=== PATIENT | male | born 1930 | race Caucasian/White ===

== ENCOUNTER 2020-06-20 22:52 | Inpatient (IN) | payer MEDICARE, OTHER ==
[~2020-06-20] VITALS: Ht 170.2 cm; Wt 77.6 kg
[2020-06-20] MEDS ORDERED: HALOPERIDOL LACTATE 5 MG/1 ML VIAL IM ONE (23:00)
[2020-06-20] MEDS ORDERED: HALOPERIDOL LACTATE 5 MG/1 ML VIAL ONE (23:06)
[2020-06-20] MEDS ORDERED: LORAZEPAM 2 MG/1 ML VIAL IV ONE (23:15)
[2020-06-20] MEDS ORDERED: LORAZEPAM 2 MG/1 ML VIAL ONE (23:20)
[2020-06-20 23:43] LABS: BASOPHILS # (AUTO) 0.1 K/uL (0.0-8.0); EOSINOPHILS # (AUTO) 0.2 K/uL (0.0-0.7); EOSINOPHILS % (AUTO) 2.2 % (0.0-7.0); HEMATOCRIT 29.8 % (36.7-47.1); HEMOGLOBIN 9.5 g/dL (12.5-16.3); LYMPHOCYTES # (AUTO) 1.8 K/uL (20.0-40.0); LYMPHOCYTES % (AUTO) 22.5 % (20.5-51.5); MEAN CORPUSCULAR HEMOGLOBIN 29.1 uug (23.8-33.4); MEAN CORPUSCULAR HGB CONC 32 g/dL (32.5-36.3); MEAN CORPUSCULAR VOLUME 91.7 fL (73.0-96.2); MONOCYTES # (AUTO) 1.1 K/uL (2.0-10.0); MONOCYTES % (AUTO) 13.7 % (0.0-11.0); NEUTROPHILS # (AUTO) 4.9 K/uL (1.8-8.9); NEUTROPHILS % (AUTO) 60.6 % (38.5-71.5); PLATELET COUNT (AUTO) 221 K/uL (152-348); RED BLOOD CELL COUNT(AUTO) 3.25 MIL/uL (4.06-5.63); WHITE BLOOD COUNT (AUTO) 8.1 K/uL (3.6-10.2)
[2020-06-20] MEDS ORDERED: DILT-32 PO (23:46)
[2020-06-20] MEDS ORDERED: OLAN2.5T3 PO (23:46)
[2020-06-20] MEDS ORDERED: DOCU100C36 PO (23:46)
[2020-06-20] MEDS ORDERED: ASCO500C18 PO (23:46)
[2020-06-20] MEDS ORDERED: APIX5TAB PO (23:46)
[2020-06-20] MEDS ORDERED: ATEN25TA PO (23:46)
[2020-06-20] MEDS ORDERED: MAGN400O6 PO (23:46)
[2020-06-20] MEDS ORDERED: DIVA500T2 PO (23:46)
[2020-06-20] MEDS ORDERED: OMEP20CA15 PO (23:46)
[2020-06-20] MEDS ORDERED: ACET-2154 PO (23:46)
[2020-06-20] MEDS ORDERED: AMIN30LI27 PO (23:46)
[2020-06-20] MEDS ORDERED: FURO-152 PO (23:46)
[2020-06-20] MEDS ORDERED: LOSA100T31 PO (23:46)
[2020-06-20] MEDS ORDERED: quercetin PO (23:46)
[2020-06-20] MEDS ORDERED: DIVA250T4 PO (23:46)
[2020-06-20] MEDS ORDERED: DONE10TA44 PO (23:46)
[2020-06-20] MEDS ORDERED: MEMA10TA PO (23:46)
[2020-06-20] MEDS ORDERED: GABA-532 PO (23:46)
[2020-06-20] MEDS ORDERED: MULT-213 PO (23:46)
[2020-06-20] MEDS ORDERED: FERR325T28 PO (23:46)
[2020-06-20 23:47] LABS: CARBON DIOXIDE 29 mmol/L (21-32); CHLORIDE 109 mmol/L (98-107); GLUCOSE 106 mg/dL (74-106); UREA NITROGEN, BLOOD 21 mg/dL (7-18)
[2020-06-20 23:48] LABS: ETHANOL < 3 MG/DL (0-0)
[2020-06-20 23:53] LABS: ALANINE AMINOTRANSFERASE 26 U/L (16-63); ALKALINE PHOSPHATASE 70 U/L (50-136); ASPARTATE AMINOTRANSFERASE 16 U/L (15-37); BILIRUBIN,DIRECT 0.1 mg/dL (0.0-0.2); BILIRUBIN,TOTAL 0.3 mg/dL (0.2-1.0); CREATINE KINASE, TOTAL 57 U/L (39-308); TOTAL PROTEIN, SERUM 7.7 g/dL (6.4-8.2)
[2020-06-20 23:55] LABS: ACETAMINOPHEN < 2.0 ug/mL (10-30)
[2020-06-21] LABS: THYROID STIMULATING HORMONE 1.906 mIU/mL (0.358-3.740)
[2020-06-21] MEDS ORDERED: FAMOTIDINE 20 MG TABLET PO ONE (01:00)
[2020-06-21] MEDS ORDERED: FAMOTIDINE 20 MG TABLET ONE (01:04)
[2020-06-21 01:12] LABS: *BILIRUBIN,URIN NEGATIVE (NEGATIVE); *CLARITY,URINE CLEAR (CLEAR); *COLOR,URINE YELLOW (YELLOW); *KETONES,URINE TRACE (NEGATIVE); *UROBILINOGEN,URINE 0.2 E.U./dl (NORMAL); LEUKOCYTE ESTERASE ,URINE NEGATIVE (NEGATIVE); NITRITE, URINE NEGATIVE (NEGATIVE); PH,URINE 6.5 (5.0-8.0); UGLUCOSE NEGATIVE (NEGATIVE)
[2020-06-21 01:13] LABS: *BLOOD, URINE TRACE (NEGATIVE)
[2020-06-21] MEDS ORDERED: APIX5TAB PO (01:16)
[2020-06-21 01:19] LABS: BACTERIA,URINE NONE SEEN /HPF (NONE SEEN); MUCUS,URINE FEW /LPF (0-FEW); SQUAMOUS EPITHELIAL CELL,UR FEW /HPF (NONE SEEN); URINE AMORPHOUS URATE FEW /HPF
[2020-06-21 01:27] LABS: *AMPHETAMINE, URINE NEGATIVE (NEGATIVE); *CANNABINOID, URINE NEGATIVE (NEGATIVE); *COCCAINE, URINE NEGATIVE (NEGATIVE); *OPIATE, URINE NEGATIVE (NEGATIVE); *PHENCYCLIDINE SCREEN,URINE NEGATIVE (NEGATIVE)
--- NOTE | 2020-06-21 01:33 | NUR ---
Patient is medically cleared by Dr. Chandler. Pt. admitted to [facility], under care of Ambrose/Kelley Dx: Psychosis. 5150 Hold/GD Belongs List completed. MRSA swab done.
[2020-06-21] MEDS ORDERED: MAG HYDROX/AL HYDROX/SIMETH 30 ML LIQUID UDC PO PRN (03:15)
[2020-06-21] MEDS ORDERED: MAGNESIUM HYDROXIDE 30 ML LIQUID UDC PO PRN (03:15)
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
[2020-06-21 06:18] VITALS: BP 148/58
--- NOTE | 2020-06-21 06:26 | NUR ---
GPS: Remain uncooperative with adl's. easily gets irritable. both lower leg has dry scaly skin. slept 2.30 hrs through the night.
[2020-06-21 07:30] VITALS: BP 136/67
--- NOTE | 2020-06-21 07:30 | NUR ---
Patient received in his room, yelling and trying to get our of bed. Tried to redirect but he kept yelling for his clothes. Patient got up and was going into other patient's rooms. He refuses all medications. He is yelling sometimes incoherent phrases. Safety precautions are in place. Will continue to monitor.
--- NOTE | 2020-06-21 07:30 | NUR ---
Patient received in his room, yelling and trying to get our of bed. Tried to redirect but he kept yelling for his clothes. Patient got up and was going into other patiient's rooms. He refuses all medications. He is yelling sometimes incoherrent phrases. Safety precautions are in place. Will continue to monitor.
[2020-06-21] MEDS: PANTOPRAZOLE SODIUM 40 MG TABLET.DR PO ONE ×2 (08:03→08:04)
[2020-06-21] MEDS: LORAZEPAM 0.5 MG TABLET PO PRN ×3 (08:04→21:24)
[2020-06-21] MEDS ORDERED: OLANZAPINE 10 MG VIAL IM ONE (08:15)
--- NOTE | 2020-06-21 08:50 | NUR ---
Patient is still yelling and being combative. Called dr Devries for order. TO is for Zyprexa 10 MG IM Now. Will administer and continue to monitor.
[2020-06-21] MEDS: DILTIAZEM HCL CD 120 MG CAP.SR.24H PO SCH (09:00)
[2020-06-21] MEDS ORDERED: PANTOPRAZOLE SODIUM 40 MG TABLET.DR PO ONE (09:00)
[2020-06-21] MEDS: FUROSEMIDE 20 MG TABLET PO SCH (09:00)
[2020-06-21] MEDS: LOSARTAN POTASSIUM 50 MG TABLET PO SCH (09:00)
[2020-06-21] MEDS: DOCUSATE SODIUM 100 MG CAPSULE PO SCH ×2 (09:00→16:30)
[2020-06-21] MEDS ORDERED: GABAPENTIN 100 MG CAPSULE PO SCH (09:00)
[2020-06-21] MEDS: ATENOLOL 25 MG TABLET PO SCH (09:00)
[2020-06-21] MEDS ORDERED: APIXABAN 2.5 MG TABLET PO SCH (09:00)
[2020-06-21] MEDS ORDERED: MEMANTINE HCL 10 MG TABLET PO SCH ×2 (09:00)
--- NOTE | 2020-06-21 10:05 | NUR ---
Patient was noted with blood in his diaper, Made LAND CLEARER aware. orders are to hold Eliquis and continue to monitor the patient for other signs of bleeding.
--- NOTE | 2020-06-21 10:19 | NUR ---
Firearms Report: Obstetric Assistant completed and submitted a DOJ firearms report for 5150 danger to others and grave disability certifications. A copy of report has been placed in patient chart.
--- NOTE | 2020-06-21 10:19 | NUR ---
KATLIN Family Contact: SW spoke with patient's daughter Carolina ([phone]) and collected collateral information. SW discussed treatment and discharge plan with Carolina.
--- NOTE | 2020-06-21 10:59 | NUR ---
WOUND CARE CONSULT: PT PRESENTS WITH LOWER LEG REDNESS, EDEMA AND DRY SCABS, PRESENT ON ADMISSION. UNABLE TO DO FULL SKIN ASSESSMENT DUE TO PT AGITATED. RECOMMENDATIONS MADE FOR SKIN PROTECTION. DISCUSSED WITH NURSING STAFF. DR BAKER NOTIFIED OF DPM CONSULT REQUEST. MD IN AGREEMENT WITH PLAN OF CARE.
--- NOTE | 2020-06-21 11:10 | NUR ---
spoke with Cele RN word processing supervisor from [facility] carolina Oakley patient had been received Eliquis daily without any allergic reaction, Fanta DIXON made aware.
--- NOTE | 2020-06-21 11:15 | NUR ---
KATLIN Initial Discharge Plan: Patient currently resides at [facility] [address] [place] [address] ([phone]) and will return back when stable for discharge. KATLIN spoke with Catrachita hathaway from [facility] who confirmed patient is welcome back. Patient's sister, Carolina ([phone]) is involved in the patient treatment and discharge plan. KATLIN will continue to work with patient, family, and MD to ensure a safe and proper discharge plan.
[2020-06-21] MEDS: GABAPENTIN 100 MG CAPSULE PO SCH (11:26)
[2020-06-21] MEDS: DIVALPROEX 250 MG TABLET.DR PO SCH ×2 (13:00→16:30)
[2020-06-21] MEDS: QUETIAPINE FUMARATE 25 MG TABLET PO SCH ×2 (13:00→16:30)
--- NOTE | 2020-06-21 15:08 | NUR ---
Patient 1300 dose for Depakote and Seroquel was not given because pharmacy did not activate until 1500. which is too close to the 1700 dose. Will endorse to the nurse taking over care.
[2020-06-21 16:00] VITALS: BP 127/61
[2020-06-21] MEDS: APIXABAN 5 MG TABLET PO SCH (16:17)
--- NOTE | 2020-06-21 17:36 | NUR ---
continue holding Eliquis due to slight bleeding noted, will continue close monitoring.
[2020-06-21] MEDS: DONEPEZIL 10 MG TABLET PO SCH (20:10)
[2020-06-21] MEDS: MEMANTINE HCL 10 MG TABLET PO SCH (20:10)
[2020-06-21] MEDS: Z GUARD REMEDY PASTE 57 GM TUBE TOP SCH (20:13)
[2020-06-21 20:25] VITALS: BP 147/71
[2020-06-21] MEDS ORDERED: DONEPEZIL 10 MG TABLET PO SCH ×2 (21:00)
--- NOTE | 2020-06-21 21:33 | NUR ---
GPS: PATIENT IS YELLING AND SCREAMING LOUD. ATIVAN 0.5 MG PO GIVEN.
[2020-06-22] MEDS: PANTOPRAZOLE SODIUM 40 MG TABLET.DR PO SCH (06:06)
[2020-06-22 07:08] LABS: BASOPHILS # (AUTO) 0.1 K/uL (0.0-8.0); BASOPHILS % (AUTO) 0.9 % (0.0-2.0); EOSINOPHILS # (AUTO) 0.2 K/uL (0.0-0.7); EOSINOPHILS % (AUTO) 2.1 % (0.0-7.0); HEMATOCRIT 33.9 % (36.7-47.1); HEMOGLOBIN 10.8 g/dL (12.5-16.3); LYMPHOCYTES # (AUTO) 1.8 K/uL (20.0-40.0); LYMPHOCYTES % (AUTO) 25.6 % (20.5-51.5); MEAN CORPUSCULAR HEMOGLOBIN 29.1 uug (23.8-33.4); MEAN CORPUSCULAR HGB CONC 32 g/dL (32.5-36.3); MEAN CORPUSCULAR VOLUME 91.6 fL (73.0-96.2); MONOCYTES # (AUTO) 0.8 K/uL (2.0-10.0); MONOCYTES % (AUTO) 11.2 % (0.0-11.0); NEUTROPHILS # (AUTO) 4.3 K/uL (1.8-8.9); NEUTROPHILS % (AUTO) 60.2 % (38.5-71.5); PLATELET COUNT (AUTO) 233 K/uL (152-348); WHITE BLOOD COUNT (AUTO) 7.1 K/uL (3.6-10.2)
[2020-06-22 07:30] VITALS: BP 150/66
[2020-06-22] MEDS: LORAZEPAM 0.5 MG TABLET PO PRN ×2 (07:40→19:47)
[2020-06-22] MEDS: LOSARTAN POTASSIUM 50 MG TABLET PO SCH (09:06)
[2020-06-22] MEDS: DOCUSATE SODIUM 100 MG CAPSULE PO SCH ×2 (09:06→16:15)
[2020-06-22] MEDS: DIVALPROEX 250 MG TABLET.DR PO SCH ×3 (09:17→16:15)
[2020-06-22] MEDS: GABAPENTIN 100 MG CAPSULE PO SCH (09:17)
[2020-06-22] MEDS: FUROSEMIDE 20 MG TABLET PO SCH (09:17)
[2020-06-22] MEDS: QUETIAPINE FUMARATE 25 MG TABLET PO SCH ×3 (09:17→16:15)
[2020-06-22] MEDS: MEMANTINE HCL 10 MG TABLET PO SCH ×2 (09:17→20:15)
[2020-06-22] MEDS: APIXABAN 5 MG TABLET PO SCH ×2 (09:18→16:16)
--- NOTE | 2020-06-22 09:19 | NUR ---
Individual Therapy: grizzly worker met with patient for brief counseling and assessed for patient's presenting problem aggressive behavior. Patient appeared to be withdrawn and depressed. Patient was blankly staring at this SW and did not verbalize. Unable to conduct therapy at this time.
[2020-06-22] MEDS: VITAMINS A AND D OINT TP SCH (09:20)
[2020-06-22] MEDS: ATENOLOL 25 MG TABLET PO SCH (09:20)
[2020-06-22] MEDS: Z GUARD REMEDY PASTE 57 GM TUBE TOP SCH ×2 (09:20→20:33)
[2020-06-22] MEDS: DILTIAZEM HCL CD 120 MG CAP.SR.24H PO SCH (09:21)
[2020-06-22 16:35] VITALS: BP 129/67
[2020-06-22] MEDS: DONEPEZIL 10 MG TABLET PO SCH (20:15)
--- NOTE | 2020-06-22 20:15 | NUR ---
Received patient sitting up in amanda chair. alert and oriented x1 israeli/Farsi speaking. he was noted yelling. patient is unable to have a meaningful conversation with this designer writer; however, he is compliant with PO medications. Ativan 0.5mg po prn was given for anxiety agitation. PO fluids and snacks were given. Safety precautions are in place. V/S stable. will continue to monitor.
[2020-06-22 20:26] VITALS: BP 121/54
[2020-06-22] MEDS: ZOLPIDEM 5 MG TABLET PO PRN (21:28)
--- NOTE | 2020-06-22 21:30 | NUR ---
while assisting patient to the bathroom and giving care, patient noted agitated and combative, security was called for assistance. patient was able to calm down. he agreed to sit on a kalpesh chair. Ambien 5mg PO prn was given, will continue to monitor.
[2020-06-23] MEDS: LORAZEPAM 0.5 MG TABLET PO PRN ×4 (01:29→21:29)
--- NOTE | 2020-06-23 01:30 | NUR ---
patient noted loud, yelling at time. Patient is difficult to redirect. Pt appears to sundown. Patient speaks Farsi. Ativan 0.5 mg PO PRN was given. he was helped to the bathroom. patient requires multiple redirection and two to three person assistance as he can become combative. After toilet care, patient was able to stay in his bed and he is now sleeping. will continue to monitor.
--- NOTE | 2020-06-23 05:41 | NUR ---
Alarm when off. patient asking to go the bathroom. He was assisted to the bathroom. no aggressive/combative bx noted. patient was able to go back to bed. will continue to monitor.
[2020-06-23] MEDS: PANTOPRAZOLE SODIUM 40 MG TABLET.DR PO SCH (07:00)
[2020-06-23 07:30] VITALS: BP 143/56
[2020-06-23] MEDS: DOCUSATE SODIUM 100 MG CAPSULE PO SCH ×2 (08:00→17:01)
[2020-06-23] MEDS: DIVALPROEX 250 MG TABLET.DR PO SCH (08:01)
[2020-06-23] MEDS: DILTIAZEM HCL CD 120 MG CAP.SR.24H PO SCH (08:01)
[2020-06-23] MEDS: FUROSEMIDE 20 MG TABLET PO SCH (08:01)
[2020-06-23] MEDS: LOSARTAN POTASSIUM 50 MG TABLET PO SCH (08:01)
[2020-06-23] MEDS: GABAPENTIN 100 MG CAPSULE PO SCH (08:01)
[2020-06-23] MEDS: MEMANTINE HCL 10 MG TABLET PO SCH ×2 (08:01→20:01)
[2020-06-23] MEDS: ATENOLOL 25 MG TABLET PO SCH (08:02)
[2020-06-23] MEDS: QUETIAPINE FUMARATE 25 MG TABLET PO SCH ×3 (08:02→17:01)
[2020-06-23] MEDS: APIXABAN 5 MG TABLET PO SCH ×2 (08:03→17:16)
[2020-06-23] MEDS: VITAMINS A AND D OINT TP SCH (08:11)
[2020-06-23] MEDS: Z GUARD REMEDY PASTE 57 GM TUBE TOP SCH ×2 (08:11→20:01)
[2020-06-23] MEDS: DIVALPROEX SPRINKLE 125 MG CAP.SPRINK PO SCH ×2 (12:26→17:01)
[2020-06-23] MEDS ORDERED: OLANZAPINE 10 MG VIAL IM ONE (13:00)
--- NOTE | 2020-06-23 13:00 | NUR ---
PT NOTED HIGHLY AGITATED ON SURINDER-CHAIR. YELLING AND SCREAMING PROFANITIES NON STOP. PT HIGHLY COMBATIVE, KICKING AND HITTING STAFF. CALLED AND RECEIVED ORDER FOR IM MEDICATIONS. ORDERED AND CARRIED OUT.
[2020-06-23] MEDS ORDERED: LORAZEPAM 2 MG/1 ML VIAL IM ONE (15:15)
--- NOTE | 2020-06-23 15:16 | NUR ---
Individual Therapy: general house worker met with patient for brief counseling and assessed for patient's presenting problem aggressive behavior. Patient appeared verbally abusive towards staff. Patient unable to have a proper conversation at this time.
[2020-06-23 16:00] VITALS: BP 134/56
[2020-06-23] MEDS: DONEPEZIL 10 MG TABLET PO SCH (20:01)
[2020-06-23 20:37] VITALS: BP 125/60
[2020-06-23] MEDS: ZOLPIDEM 5 MG TABLET PO PRN (22:31)
[2020-06-24] MEDS: PANTOPRAZOLE SODIUM 40 MG TABLET.DR PO SCH (06:18)
--- NOTE | 2020-06-24 06:45 | NUR ---
Pt slept a total of 6.30 hours last night. Pt was slightly agitated and was not able to fall asleep. PRNs were given. Pt was helped to bed and was finally able to rest and fall asleep. Pt does not appear to be in any distress. Pt is arousable to name and touch. No SOB noted. Bed is locked and in lowest position, bed alarm on. No other issues or concerns at this time, will endorse to day shift.
[2020-06-24 07:30] VITALS: BP 149/77
[2020-06-24 07:43] LABS: CREATININE 0.9 mg/dL (0.6-1.3); POTASSIUM 4.1 mmol/L (3.5-5.1)
[2020-06-24] MEDS: LORAZEPAM 0.5 MG TABLET PO PRN ×3 (08:19→19:56)
[2020-06-24] MEDS: FUROSEMIDE 20 MG TABLET PO SCH (08:44)
[2020-06-24] MEDS: DILTIAZEM HCL CD 120 MG CAP.SR.24H PO SCH (08:44)
[2020-06-24] MEDS: DOCUSATE SODIUM 100 MG CAPSULE PO SCH ×2 (08:44→16:27)
[2020-06-24] MEDS: GABAPENTIN 100 MG CAPSULE PO SCH (08:44)
[2020-06-24] MEDS: QUETIAPINE FUMARATE 25 MG TABLET PO SCH ×5 (08:44→20:17)
[2020-06-24] MEDS: DIVALPROEX SPRINKLE 125 MG CAP.SPRINK PO SCH ×3 (08:44→16:27)
[2020-06-24] MEDS: ATENOLOL 25 MG TABLET PO SCH (08:45)
[2020-06-24] MEDS: LOSARTAN POTASSIUM 50 MG TABLET PO SCH (08:45)
[2020-06-24] MEDS: APIXABAN 5 MG TABLET PO SCH ×2 (08:47→16:28)
[2020-06-24] MEDS: VITAMINS A AND D OINT TP SCH (08:53)
[2020-06-24] MEDS: Z GUARD REMEDY PASTE 57 GM TUBE TOP SCH ×2 (08:53→20:17)
[2020-06-24] MEDS: MEMANTINE HCL 10 MG TABLET PO SCH ×2 (08:53→20:17)
--- NOTE | 2020-06-24 09:35 | NUR ---
GPS: Nursing Notes: Severe Agitation: Patient awake and responding to his name, poor anger management, overly disruptive by constantly shouting and banging on the table or wall, punching staff when assisting him, redirected, but unable to follow directions, poor insight, restless behavior, sexually inappropriate behavior by grabbing his penis and showing off to female staff, resistant with nursing care, Dr. Kayce palmer, continue to monitor for safety, continue with treatment plan.
[2020-06-24] MEDS ORDERED: diphenhydrAMINE 50 MG/1 ML VIAL IM ONE (09:45)
[2020-06-24] MEDS ORDERED: HALOPERIDOL LACTATE 5 MG/1 ML VIAL IM ONE (09:45)
--- NOTE | 2020-06-24 09:46 | NUR ---
GPS: Nursing Notes: Chemical Restraint: Patient continue to be overly disruptive constantly shouting and banging on the table or wall, grabbing female staff or peers when they get near him, redirected, but unable to be redirected, constantly screaming, trying to punch staff with his fist, resistant with nursing care, poor anger management, restless behavior, R=18, Dr. Devries called and ordered: Haldol 5mg IM and Benadryl 25mg IM STAT, IM medications given now, continue to monitor for safety, continue with treatment plan.
--- NOTE | 2020-06-24 10:16 | NUR ---
GPS: Nursing Notes: Reassessment of Chemical Restraint: Patient awake and responding to his name, patient became calm, confused, disorganized, but stopped banging on the at table or wall, IM medications were effective, R=18, continue to monitor for safety, continue with treatment plan.
[2020-06-24 13:02] LABS: BASOPHILS # (AUTO) 0.1 K/uL (0.0-8.0); BASOPHILS % (AUTO) 0.9 % (0.0-2.0); EOSINOPHILS # (AUTO) 0.2 K/uL (0.0-0.7); EOSINOPHILS % (AUTO) 3.6 % (0.0-7.0); HEMATOCRIT 32.8 % (36.7-47.1); HEMOGLOBIN 10.4 g/dL (12.5-16.3); LYMPHOCYTES # (AUTO) 1.7 K/uL (20.0-40.0); LYMPHOCYTES % (AUTO) 24.4 % (20.5-51.5); MEAN CORPUSCULAR HEMOGLOBIN 28.9 uug (23.8-33.4); MEAN CORPUSCULAR HGB CONC 32 g/dL (32.5-36.3); MEAN CORPUSCULAR VOLUME 91.3 fL (73.0-96.2); MONOCYTES # (AUTO) 0.8 K/uL (2.0-10.0); MONOCYTES % (AUTO) 12.2 % (0.0-11.0); NEUTROPHILS % (AUTO) 58.9 % (38.5-71.5); PLATELET COUNT (AUTO) 213 K/uL (152-348); RED BLOOD CELL COUNT(AUTO) 3.59 MIL/uL (4.06-5.63); WHITE BLOOD COUNT (AUTO) 6.9 K/uL (3.6-10.2)
[2020-06-24 16:00] VITALS: BP 117/52
--- NOTE | 2020-06-24 17:47 | NUR ---
GPS: Nursing Notes: Thought Disorder: Patient is awake and responding to his name, impaired judgment, resistant with nursing care, overly disruptive by constantly shouting, episode of grabbing his penis and show it off to female staff, episodes of striking out when assisting him with ADL's, redirected and reoriented during shift, impaired judgment, confused, unable to formulate a viable plan for self care, continue with treatment plan.
[2020-06-24 19:57] VITALS: BP 108/54
[2020-06-24] MEDS: DONEPEZIL 10 MG TABLET PO SCH (20:17)
[2020-06-24] MEDS: ZOLPIDEM 5 MG TABLET PO PRN (20:55)
[2020-06-25] MEDS: PANTOPRAZOLE SODIUM 40 MG TABLET.DR PO SCH (06:16)
[2020-06-25 07:30] VITALS: BP 128/52
[2020-06-25] MEDS: LORAZEPAM 0.5 MG TABLET PO PRN ×3 (07:32→23:24)
[2020-06-25] MEDS: DILTIAZEM HCL CD 120 MG CAP.SR.24H PO SCH (08:12)
[2020-06-25] MEDS: DIVALPROEX SPRINKLE 125 MG CAP.SPRINK PO SCH ×3 (08:12→16:17)
[2020-06-25] MEDS: DOCUSATE SODIUM 100 MG CAPSULE PO SCH ×2 (08:12→16:17)
[2020-06-25] MEDS: QUETIAPINE FUMARATE 25 MG TABLET PO SCH ×4 (08:13→20:34)
[2020-06-25] MEDS: GABAPENTIN 100 MG CAPSULE PO SCH (08:13)
[2020-06-25] MEDS: FUROSEMIDE 20 MG TABLET PO SCH (08:13)
[2020-06-25] MEDS: LOSARTAN POTASSIUM 50 MG TABLET PO SCH (08:13)
[2020-06-25] MEDS: MEMANTINE HCL 10 MG TABLET PO SCH ×2 (08:13→20:34)
[2020-06-25] MEDS: Z GUARD REMEDY PASTE 57 GM TUBE TOP SCH ×2 (08:14→20:34)
[2020-06-25] MEDS: ATENOLOL 25 MG TABLET PO SCH (08:14)
[2020-06-25] MEDS: VITAMINS A AND D OINT TP SCH (08:14)
[2020-06-25] MEDS: APIXABAN 5 MG TABLET PO SCH ×2 (08:15→16:19)
--- NOTE | 2020-06-25 11:25 | NUR ---
GPS: Nursing Notes: Severe Agitation: Patient awake and responding to his name, poor anger management, violent outburst without provocation, overly disruptive by constantly screaming, shouting, constantly banging on the wall and table, shouting "MAMA... PAPA.." while masturbating in front ot nursing station, redirected and setting limits, but unable to be redirected, trying to striking out to staff, restless behavior, Dr. Kayce palmer, continue to monitor for safety, continue with treatment plan.
[2020-06-25] MEDS ORDERED: HALOPERIDOL LACTATE 5 MG/1 ML VIAL IM ONE (11:30)
[2020-06-25] MEDS ORDERED: diphenhydrAMINE 50 MG/1 ML VIAL IM ONE (11:30)
--- NOTE | 2020-06-25 11:33 | NUR ---
GPS: Nursing Notes: Chemical Restraint: Patient continue to be overly disruptive by constantly shouting, screaming, poor anger management, poor impulse control, constantly banging on the table or wall, kicking staff, impaired judgment, confused, unable to be redirected, restless behavior, putting his hand between his legs, Dr. Devries present and ordered: Haldol 5mg IM and Benadryl 25mg IM X1 STAT for severe agitated behavior, R=18, medications given at this time, continue to monitor for safety, continue with treatment plan.
--- NOTE | 2020-06-25 12:03 | NUR ---
GPS: Nursing Notes: Reassessment of Chemical Restraint: Patient is awake and responding to his name, patient became calm, stopped shouting, IM medications were effective, R=18, continue to set limits, continue to monitor for safety, continue with treatment plan.
[2020-06-25] MEDS: ACETAMINOPHEN 325 MG TABLET PO PRN (16:18)
[2020-06-25 20:08] VITALS: BP 134/78
--- NOTE | 2020-06-25 20:30 | NUR ---
RECEIVED PATIENT IN THE HALLWAY, HE IS SITTING IN A SILVIO CHAIR. HE IS NOTED CONFUSED, HYPERVERBAL, RESTLESS. PATIENT IS ARMINAN SPEAKER; THEREFORE, THE BLUE PHONE WAS USED TO COMMUNICATE WITH PATIENT'S AND HIS NEED; HOWEVER, HE WAS UNABLE TO UNDERSTAND, A PHONE CALL WAS PLACED TO PATIENT'S SON. SON STATED THAT HIS FATHER WAS COLD AND NEEDED IT A BLANKET. PATIENT WAS GIVEN A BLANKET AND ALL HIS NEEDS WERE MET. HE IS ABLE TO COMPLY WITH MEDICATION REGIMENT AT THIS TIME. V/S STABLE AT THIS TIME. HE IS REASSURED FOR HIS SAFETY. SAFETY AND FALL PRECAUTION IN PLACE. WILL CONTINUE TO MONITOR.
[2020-06-25] MEDS: DONEPEZIL 10 MG TABLET PO SCH (21:20)
[2020-06-26] MEDS: ZOLPIDEM 5 MG TABLET PO PRN (01:13)
[2020-06-26] MEDS: LORAZEPAM 0.5 MG TABLET PO PRN ×2 (06:43→18:27)
[2020-06-26] MEDS: PANTOPRAZOLE SODIUM 40 MG TABLET.DR PO SCH (06:44)
[2020-06-26 07:30] VITALS: BP 137/59
[2020-06-26] MEDS: ACETAMINOPHEN 325 MG TABLET PO PRN ×2 (08:28→18:27)
[2020-06-26] MEDS: DOCUSATE SODIUM 100 MG CAPSULE PO SCH ×2 (08:29→16:18)
[2020-06-26] MEDS: LOSARTAN POTASSIUM 50 MG TABLET PO SCH (08:29)
[2020-06-26] MEDS: FUROSEMIDE 20 MG TABLET PO SCH (08:29)
[2020-06-26] MEDS: GABAPENTIN 100 MG CAPSULE PO SCH (08:29)
[2020-06-26] MEDS: DILTIAZEM HCL CD 120 MG CAP.SR.24H PO SCH (08:29)
[2020-06-26] MEDS: QUETIAPINE FUMARATE 25 MG TABLET PO SCH ×4 (08:29→19:56)
[2020-06-26] MEDS: MEMANTINE HCL 10 MG TABLET PO SCH ×2 (08:29→19:56)
[2020-06-26] MEDS: DIVALPROEX SPRINKLE 125 MG CAP.SPRINK PO SCH ×3 (08:30→16:18)
[2020-06-26] MEDS: APIXABAN 5 MG TABLET PO SCH ×2 (08:30→16:18)
[2020-06-26] MEDS: Z GUARD REMEDY PASTE 57 GM TUBE TOP SCH ×2 (08:31→19:56)
[2020-06-26] MEDS: VITAMINS A AND D OINT TP SCH (08:32)
[2020-06-26] MEDS: ATENOLOL 25 MG TABLET PO SCH (09:38)
[2020-06-26] MEDS ORDERED: BISACODYL 5 MG TABLET.DR PO ONE (12:15)
--- NOTE | 2020-06-26 12:22 | NUR ---
Court Hearing: Patient's court hearing was today and it was upheld for GD and danger to others.
[2020-06-26 15:09] VITALS: BP 128/65
--- NOTE | 2020-06-26 15:31 | NUR ---
Individual Therapy: tire worker met with patient for brief counseling and assessed for patient's presenting problem aggressive behavior. Patient appeared disorganized and disoriented. Patient been yelling "come here, come here". It appears that patient has been experiencing visual/auditory hallucinations. SW unable to conduct therapy at this time due to yelling.
[2020-06-26] MEDS: Z GUARD REMEDY PASTE 57 GM TUBE TOP PRN (18:28)
[2020-06-26] MEDS: DONEPEZIL 10 MG TABLET PO SCH (19:56)
[2020-06-26 20:21] VITALS: BP 123/53
[2020-06-27] MEDS: LORAZEPAM 0.5 MG TABLET PO PRN ×4 (03:57→22:18)
[2020-06-27] MEDS: ACETAMINOPHEN 325 MG TABLET PO PRN ×4 (03:57→22:27)
[2020-06-27] MEDS: PANTOPRAZOLE SODIUM 40 MG TABLET.DR PO SCH (06:47)
[2020-06-27 07:30] VITALS: BP 120/69
[2020-06-27] MEDS: DOCUSATE SODIUM 100 MG CAPSULE PO SCH ×2 (08:54→16:18)
[2020-06-27] MEDS: GABAPENTIN 100 MG CAPSULE PO SCH (08:55)
[2020-06-27] MEDS: DILTIAZEM HCL CD 120 MG CAP.SR.24H PO SCH (08:55)
[2020-06-27] MEDS: MEMANTINE HCL 10 MG TABLET PO SCH ×2 (08:55→20:01)
[2020-06-27] MEDS: DIVALPROEX SPRINKLE 125 MG CAP.SPRINK PO SCH ×3 (08:56→16:19)
[2020-06-27] MEDS: ATENOLOL 25 MG TABLET PO SCH (08:57)
[2020-06-27] MEDS: LOSARTAN POTASSIUM 50 MG TABLET PO SCH (08:57)
[2020-06-27] MEDS: QUETIAPINE FUMARATE 25 MG TABLET PO SCH (08:57)
[2020-06-27] MEDS: FUROSEMIDE 20 MG TABLET PO SCH (08:57)
[2020-06-27] MEDS: APIXABAN 5 MG TABLET PO SCH ×2 (08:58→16:19)
[2020-06-27] MEDS: Z GUARD REMEDY PASTE 57 GM TUBE TOP SCH ×2 (08:59→20:13)
[2020-06-27] MEDS: VITAMINS A AND D OINT TP SCH (08:59)
--- NOTE | 2020-06-27 10:45 | NUR ---
GPS: Nursing Notes: Severe Agitation: Patient is awake and responding to his name, poor anger management, violent outburst without provocation, restless behavior, overly disruptive by shouting constantly, offer Ativan PO PRN, but refused medication, striking out to staff, punch staff on the face, threatening behavior by constantly trying to strike to staff when passing by, poor impulse control, loud and angry affect, loud and pressured speech, setting limits, but unable to be redirected, Dr. Ambrose palmer, continue to monitor for safety, continue with treatment plan.
[2020-06-27] MEDS ORDERED: HALOPERIDOL LACTATE 5 MG/1 ML VIAL IM ONE (11:00)
[2020-06-27] MEDS ORDERED: diphenhydrAMINE 50 MG/1 ML VIAL IM ONE (11:00)
--- NOTE | 2020-06-27 11:01 | NUR ---
GPS: Nursing Notes: Chemical Restraint: Patient continue with violent behavior without provocation, overly disruptive by constantly screaming, shouting, poor impulse control, punching staff on the face, constantly trying to strike out staff when staff trying to assist him with ADL's, restless behavior, setting limits, but continue to hit staff, unable to be redirected, R=18, Dr. Boggs ordered: Haldol 3mg IM and Benadryl 25mg IM STAT X1 for severe agitated behavior, continue to monitor for safety, continue with treatment plan.
--- NOTE | 2020-06-27 11:31 | NUR ---
GPS: Nursing Notes: Reassessment of Chemical Restraint: Patient is awake and responding to his name, became calm, stopped shouting, stopped striking out, R=18, IM medications were effective, continue to monitor for safety, continue with treatment plan.
[2020-06-27] MEDS: HALOPERIDOL 0.5 MG TABLET PO SCH ×2 (13:01→16:18)
--- NOTE | 2020-06-27 14:52 | NUR ---
GPS: Nursing Notes: Destructive Behavior to Others: Patient is awake and responding to his name, overly disruptive by constantly shouting, poor anger management, violent outburst without provocation, striking out to staff, punched staff on the face when approaching him to assist him with ADL's, loud and pressured speech, constantly screaming, setting limits, redirected and reoriented during shift, but gets easily irritable when redirected, unable to formulate a viable plan for self care, continue with treatment plan.
[2020-06-27 15:29] VITALS: BP 108/51
[2020-06-27] MEDS: BENZTROPINE MESYLATE 0.5 MG TABLET PO SCH (16:19)
[2020-06-27 20:00] VITALS: BP 121/72
[2020-06-27] MEDS: DONEPEZIL 10 MG TABLET PO SCH (20:01)
[2020-06-27] MEDS ORDERED: HALOPERIDOL 0.5 MG TABLET PO SCH (21:00)
[2020-06-27] MEDS: TEMAZEPAM 7.5 MG CAPSULE PO PRN (21:07)
[2020-06-28] MEDS: LORAZEPAM 0.5 MG TABLET PO PRN ×3 (05:39→17:51)
--- NOTE | 2020-06-28 05:45 | NUR ---
GPS: Pt.now awake and just finished taking a shower with help from staff. Anxious,restless and yelling on and off. Re-directed prn. Ativan 0.5mg given PO as ordered. Will monitor effectiveness. Fluids tim.well.
[2020-06-28] MEDS: Z GUARD REMEDY PASTE 57 GM TUBE TOP PRN (05:48)
[2020-06-28] MEDS: PANTOPRAZOLE SODIUM 40 MG TABLET.DR PO SCH (06:06)
[2020-06-28 07:21] LABS: BASOPHILS # (AUTO) 0.1 K/uL (0.0-8.0); BASOPHILS % (AUTO) 0.9 % (0.0-2.0); EOSINOPHILS # (AUTO) 0.3 K/uL (0.0-0.7); EOSINOPHILS % (AUTO) 3.3 % (0.0-7.0); HEMATOCRIT 35.1 % (36.7-47.1); HEMOGLOBIN 11.1 g/dL (12.5-16.3); LYMPHOCYTES # (AUTO) 2.1 K/uL (20.0-40.0); LYMPHOCYTES % (AUTO) 25.1 % (20.5-51.5); MEAN CORPUSCULAR HGB CONC 32 g/dL (32.5-36.3); MEAN CORPUSCULAR VOLUME 91.5 fL (73.0-96.2); MONOCYTES # (AUTO) 1.1 K/uL (2.0-10.0); MONOCYTES % (AUTO) 13.1 % (0.0-11.0); NEUTROPHILS # (AUTO) 4.9 K/uL (1.8-8.9); NEUTROPHILS % (AUTO) 57.6 % (38.5-71.5); PLATELET COUNT (AUTO) 223 K/uL (152-348); RED BLOOD CELL COUNT(AUTO) 3.84 MIL/uL (4.06-5.63); WHITE BLOOD COUNT (AUTO) 8.5 K/uL (3.6-10.2)
[2020-06-28 07:30] VITALS: BP 133/97
--- NOTE | 2020-06-28 07:30 | NUR ---
Received report from KYAW Chowdhury. All questions, comments, and concerns were addressed. Received patient sitting in chair, anxious, yelling at staff, and confused. patient provided with reality orientation and redirection.
[2020-06-28 07:32] LABS: BILIRUBIN,TOTAL 0.5 mg/dL (0.2-1.0); CREATININE 1.1 mg/dL (0.6-1.3); MAGNESIUM 2.5 mg/dL (1.8-2.4); POTASSIUM 4.6 mmol/L (3.5-5.1); TOTAL PROTEIN, SERUM 8.5 g/dL (6.4-8.2)
[2020-06-28] MEDS: DOCUSATE SODIUM 100 MG CAPSULE PO SCH ×2 (08:05→17:24)
[2020-06-28] MEDS: MEMANTINE HCL 10 MG TABLET PO SCH ×2 (08:05→20:06)
[2020-06-28] MEDS: FUROSEMIDE 20 MG TABLET PO SCH (08:05)
[2020-06-28] MEDS: BENZTROPINE MESYLATE 0.5 MG TABLET PO SCH ×2 (08:06→17:24)
[2020-06-28] MEDS: DIVALPROEX SPRINKLE 125 MG CAP.SPRINK PO SCH ×4 (08:06→20:07)
[2020-06-28] MEDS: GABAPENTIN 100 MG CAPSULE PO SCH (08:06)
[2020-06-28] MEDS: HALOPERIDOL 0.5 MG TABLET PO SCH (08:06)
[2020-06-28] MEDS: ATENOLOL 25 MG TABLET PO SCH (08:07)
[2020-06-28] MEDS: LOSARTAN POTASSIUM 50 MG TABLET PO SCH (08:07)
[2020-06-28] MEDS: DILTIAZEM HCL CD 120 MG CAP.SR.24H PO SCH (08:07)
[2020-06-28] MEDS: APIXABAN 5 MG TABLET PO SCH ×2 (08:08→17:28)
[2020-06-28] MEDS: VITAMINS A AND D OINT TP SCH (08:09)
[2020-06-28] MEDS: Z GUARD REMEDY PASTE 57 GM TUBE TOP SCH ×2 (08:09→20:08)
--- NOTE | 2020-06-28 09:54 | NUR ---
patient is alert and oriented to name only. provided with reality orientation to time, date, situation. he is agitated, restless, demanding, and belligerent. patient requires constant redirection and reality orientation. he is frequently cursing at this signwriter during limit setting. patient is adherent with medication, no adverse reaction noted. patient denies SI/HI, denies AH/VH. patient is able to tolerate food and fluids. patient requires assistance with ambulation and to perform self care and ADL's. patient educated about impulse control and how to communicate his needs to staff appropriately.
[2020-06-28] MEDS ORDERED: HALOPERIDOL LACTATE 5 MG/1 ML VIAL IM STA (11:13)
[2020-06-28] MEDS ORDERED: diphenhydrAMINE 50 MG/1 ML VIAL IM ONE (11:15)
--- NOTE | 2020-06-28 11:40 | NUR ---
patient is angry, cursing at staff, forcefully hitting his hand against against table, and attempting to punch staff. patient is not cooperative with education and not follow redirection/reality orientation attempts because he is confused and disoriented. MD placed orders for emergency medication of Haldol 3 mg IM and Benadryl 25 mg IM. Orders noted an carried out. Im given with no adverse reaction. patient is unable to participate in education at this time. sitting in chair.
--- NOTE | 2020-06-28 11:52 | NUR ---
patient continues to hit his hand forcefully on the chair, curse at staff, and is attempting to punch multiple staff members and be combative. redirection/reality orientation efforts are ineffective. patient provided with PO Ativan PRN. he is unable to contract for his safety and the safety of others, he is unable to communicate his needs appropriately or provide a safe environment for himself or others.
[2020-06-28] MEDS ORDERED: LORAZEPAM 2 MG/1 ML VIAL IM ONE (12:50)
--- NOTE | 2020-06-28 13:23 | NUR ---
MD notified about patient's behavior of being combative with staff, forcefully hitting his hand against table, and not taking his safety or the safety of others into consideration. MD gave orders for Ativan 1 mg IM once now. orders noted and carried out. patient given IM without adverse reaction. patient is unable to participate in education due to confusion and disorientation. patient's safety maintained.
--- NOTE | 2020-06-28 14:03 | NUR ---
Individual Therapy: plant care worker met with patient for brief counseling and assessed for patient's presenting problem aggressive behavior. Patient appeared disorganized and disoriented. Patient has been yelling "come here, come here". Patient unable to have a meaningful conversation due to confusion. SW unable to conduct therapy at this time.
--- NOTE | 2020-06-28 15:54 | NUR ---
Patient continues to be agitated, angry, demanding staff let him leave the unit, and cursing at staff. This brief writer attempted redirection and reality orientation countless times but is ineffective because patient is confused, disoriented, and refusing to participate in education. patient is also attempting multiple times to jump out of chair despite being unsteady and unable to ambulate independently. this brief writer is closely monitoring patient and providing intervention as needed.
[2020-06-28 16:36] VITALS: BP 117/76
[2020-06-28] MEDS: HALOPERIDOL 1 MG TABLET PO SCH ×2 (17:25→20:06)
[2020-06-28] MEDS: ACETAMINOPHEN 325 MG TABLET PO PRN (17:50)
--- NOTE | 2020-06-28 18:05 | NUR ---
patient continues to be angry, agitated, belligerent, banging his fist forcefully on the table, cursing at staff, and threatening staff. unable to be redirected or provided with reality orientation because patient is confused and disoriented. he is unable to have a linear or logical conversation, unable to comprehend any direction from staff. patient given PRN Ativan 0.5 mg PO. patient also states that he is having lower back pain, provide with Tylenol 650 mg PO PRN. this handbook writer monitoring patient closely and will provide intervention as needed.
[2020-06-28] MEDS: DONEPEZIL 10 MG TABLET PO SCH (20:07)
[2020-06-28 20:32] VITALS: BP 117/73
[2020-06-29] MEDS: TEMAZEPAM 7.5 MG CAPSULE PO PRN
[2020-06-29] MEDS: LORAZEPAM 0.5 MG TABLET PO PRN ×3 (00:46→10:21)
[2020-06-29] MEDS: PANTOPRAZOLE SODIUM 40 MG TABLET.DR PO SCH (06:25)
--- NOTE | 2020-06-29 06:25 | NUR ---
GPS: Pt.still asleep upon rounds. Pt.has been sleeping for atleast 6.30 so far. Remains confused,disoriented with periods of yelling/calling-out last night. Needs frequent re-direction. No striking out behavior/aggressive behavior noted. Assisted to the bathroom for elimination purposes. Fall precautions observed. Will continue to monitor.
[2020-06-29 07:30] VITALS: BP 120/54
[2020-06-29] MEDS: DIVALPROEX SPRINKLE 125 MG CAP.SPRINK PO SCH ×4 (08:25→21:55)
[2020-06-29] MEDS: FUROSEMIDE 20 MG TABLET PO SCH (08:25)
[2020-06-29] MEDS: BENZTROPINE MESYLATE 0.5 MG TABLET PO SCH ×2 (08:26→16:10)
[2020-06-29] MEDS: GABAPENTIN 100 MG CAPSULE PO SCH ×3 (08:26→16:10)
[2020-06-29] MEDS: MEMANTINE HCL 10 MG TABLET PO SCH ×2 (08:26→21:55)
[2020-06-29] MEDS: DOCUSATE SODIUM 100 MG CAPSULE PO SCH ×2 (08:27→16:10)
[2020-06-29] MEDS: LOSARTAN POTASSIUM 50 MG TABLET PO SCH (08:27)
[2020-06-29] MEDS: HALOPERIDOL 1 MG TABLET PO SCH ×4 (08:27→21:55)
[2020-06-29] MEDS: DILTIAZEM HCL CD 120 MG CAP.SR.24H PO SCH (08:28)
[2020-06-29] MEDS: APIXABAN 5 MG TABLET PO SCH ×2 (08:35→16:54)
[2020-06-29] MEDS: ATENOLOL 25 MG TABLET PO SCH (08:36)
[2020-06-29] MEDS: Z GUARD REMEDY PASTE 57 GM TUBE TOP SCH ×2 (08:37→22:01)
[2020-06-29] MEDS: VITAMINS A AND D OINT TP SCH (08:38)
[2020-06-29] MEDS ORDERED: GABAPENTIN 100 MG CAPSULE PO SCH (13:00)
[2020-06-29] MEDS: LORAZEPAM 0.5 MG TABLET PO SCH ×3 (14:09→21:55)
--- NOTE | 2020-06-29 14:49 | NUR ---
Gps/Wirer Passenger Car- Stayed up in his amanda-chair, kept infront of the Nurses station for his safety. Ambulated to the bathroom with 2 staff assisting, Gets fidgety at times. Ambulated on the hallway with 2 staff assisting, tends to lean on his right side. Fed self ind. after set up.
[2020-06-29 16:00] VITALS: BP 126/54
[2020-06-29 20:32] VITALS: BP 136/56
[2020-06-29] MEDS: DONEPEZIL 10 MG TABLET PO SCH (21:55)
--- NOTE | 2020-06-29 22:01 | NUR ---
GPS: Pt.awake,anxious,restless and removing his clothing. Re-directed prn. Confused,disoriented and disorganized. Assisted to the bathroom for elimination purposes with unsteady gait. Fall precautions observed.
--- NOTE | 2020-06-30 00:25 | NUR ---
GPS: Pt.asleep upon rounds with resp.even and unlabored. Bed alarm on for safety. Fall precautions observed. In no form of distress noted.
[2020-06-30] MEDS: TEMAZEPAM 7.5 MG CAPSULE PO PRN (01:37)
[2020-06-30] MEDS: LORAZEPAM 0.5 MG TABLET PO PRN ×2 (05:59→15:30)
[2020-06-30] MEDS: PANTOPRAZOLE SODIUM 40 MG TABLET.DR PO SCH (06:01)
[2020-06-30 07:15] LABS: BASOPHILS # (AUTO) 0.1 K/uL (0.0-8.0); BASOPHILS % (AUTO) 1.2 % (0.0-2.0); EOSINOPHILS # (AUTO) 0.2 K/uL (0.0-0.7); EOSINOPHILS % (AUTO) 2.5 % (0.0-7.0); HEMATOCRIT 34.5 % (36.7-47.1); HEMOGLOBIN 11.2 g/dL (12.5-16.3); LYMPHOCYTES % (AUTO) 29.5 % (20.5-51.5); MEAN CORPUSCULAR HEMOGLOBIN 29.6 uug (23.8-33.4); MEAN CORPUSCULAR HGB CONC 32 g/dL (32.5-36.3); MEAN CORPUSCULAR VOLUME 91.3 fL (73.0-96.2); MONOCYTES # (AUTO) 0.7 K/uL (2.0-10.0); MONOCYTES % (AUTO) 10.9 % (0.0-11.0); NEUTROPHILS # (AUTO) 3.8 K/uL (1.8-8.9); NEUTROPHILS % (AUTO) 55.9 % (38.5-71.5); PLATELET COUNT (AUTO) 188 K/uL (152-348); RED BLOOD CELL COUNT(AUTO) 3.77 MIL/uL (4.06-5.63); WHITE BLOOD COUNT (AUTO) 6.7 K/uL (3.6-10.2)
[2020-06-30 07:26] LABS: BILIRUBIN,TOTAL 0.5 mg/dL (0.2-1.0); CREATININE 1.2 mg/dL (0.6-1.3); POTASSIUM 4.1 mmol/L (3.5-5.1); TOTAL PROTEIN, SERUM 7.8 g/dL (6.4-8.2)
[2020-06-30 07:30] VITALS: BP 106/55
[2020-06-30] MEDS: DOCUSATE SODIUM 100 MG CAPSULE PO SCH ×2 (08:34→16:14)
[2020-06-30] MEDS: HALOPERIDOL 1 MG TABLET PO SCH ×4 (08:34→20:12)
[2020-06-30] MEDS: DIVALPROEX SPRINKLE 125 MG CAP.SPRINK PO SCH ×4 (08:34→20:08)
[2020-06-30] MEDS: MEMANTINE HCL 10 MG TABLET PO SCH ×2 (08:34→20:12)
[2020-06-30] MEDS: GABAPENTIN 100 MG CAPSULE PO SCH ×3 (08:35→16:13)
[2020-06-30] MEDS: FUROSEMIDE 20 MG TABLET PO SCH (08:35)
[2020-06-30] MEDS: LOSARTAN POTASSIUM 50 MG TABLET PO SCH (08:37)
[2020-06-30] MEDS: APIXABAN 5 MG TABLET PO SCH ×2 (08:37→16:23)
[2020-06-30] MEDS: DILTIAZEM HCL CD 120 MG CAP.SR.24H PO SCH (08:38)
[2020-06-30] MEDS: BENZTROPINE MESYLATE 0.5 MG TABLET PO SCH ×2 (08:39→16:13)
[2020-06-30] MEDS: Z GUARD REMEDY PASTE 57 GM TUBE TOP SCH ×2 (08:45→20:16)
[2020-06-30] MEDS: VITAMINS A AND D OINT TP SCH (08:45)
[2020-06-30] MEDS: ATENOLOL 25 MG TABLET PO SCH (08:46)
[2020-06-30] MEDS: LORAZEPAM 0.5 MG TABLET PO SCH ×4 (09:24→20:09)
[2020-06-30 16:44] VITALS: BP 115/65
[2020-06-30] MEDS: DONEPEZIL 10 MG TABLET PO SCH (20:08)
[2020-06-30 20:24] VITALS: BP 128/49
[2020-07-01] MEDS: ACETAMINOPHEN 325 MG TABLET PO PRN ×2 (05:04→22:08)
[2020-07-01] MEDS: LORAZEPAM 0.5 MG TABLET PO PRN ×3 (05:04→21:53)
[2020-07-01] MEDS: PANTOPRAZOLE SODIUM 40 MG TABLET.DR PO SCH (06:06)
--- NOTE | 2020-07-01 06:39 | NUR ---
PATIENT AWAKE, SLEPT FOR 5:15 HRS. PATIENT ASSISTED WITH TOILETING, KEPT CLEAN AND DRY. PATIENT HAD MULTIPLE EPISODE OF AGITATION, BANGGING THE TABLE, REDIRECT PATIENT BUT NOT EFFECTIVE, MEDICATED ORDERED. CONT TO MONITOR.
[2020-07-01 07:30] VITALS: BP 136/58
[2020-07-01] MEDS: DIVALPROEX SPRINKLE 125 MG CAP.SPRINK PO SCH ×3 (08:15→17:03)
[2020-07-01] MEDS: HALOPERIDOL 1 MG TABLET PO SCH ×3 (08:16→17:10)
[2020-07-01] MEDS: GABAPENTIN 100 MG CAPSULE PO SCH ×3 (08:16→17:10)
[2020-07-01] MEDS: LOSARTAN POTASSIUM 50 MG TABLET PO SCH (08:17)
[2020-07-01] MEDS: MEMANTINE HCL 10 MG TABLET PO SCH ×2 (08:17→20:06)
[2020-07-01] MEDS: LORAZEPAM 0.5 MG TABLET PO SCH ×4 (08:18→20:07)
[2020-07-01] MEDS: FUROSEMIDE 20 MG TABLET PO SCH (08:18)
[2020-07-01] MEDS: ATENOLOL 25 MG TABLET PO SCH (08:21)
[2020-07-01] MEDS: DILTIAZEM HCL CD 120 MG CAP.SR.24H PO SCH (08:22)
[2020-07-01] MEDS: BENZTROPINE MESYLATE 0.5 MG TABLET PO SCH ×2 (08:23→17:10)
[2020-07-01] MEDS: DOCUSATE SODIUM 100 MG CAPSULE PO SCH ×2 (08:23→17:11)
[2020-07-01] MEDS: APIXABAN 5 MG TABLET PO SCH ×2 (08:24→17:09)
[2020-07-01] MEDS: VITAMINS A AND D OINT TP SCH (08:29)
[2020-07-01] MEDS: Z GUARD REMEDY PASTE 57 GM TUBE TOP SCH ×2 (08:29→20:07)
[2020-07-01 16:00] VITALS: BP 119/48
[2020-07-01] MEDS: HALOPERIDOL 2 MG TABLET PO SCH (20:06)
[2020-07-01] MEDS: DONEPEZIL 10 MG TABLET PO SCH (20:07)
[2020-07-01] MEDS ORDERED: DIVALPROEX SPRINKLE 125 MG CAP.SPRINK PO SCH (21:00)
[2020-07-02] MEDS: LORAZEPAM 0.5 MG TABLET PO PRN ×3 (05:40→19:06)
[2020-07-02] MEDS: PANTOPRAZOLE SODIUM 40 MG TABLET.DR PO SCH (06:12)
--- NOTE | 2020-07-02 06:50 | NUR ---
PT SLEPT5.15 H.PT IN NO ACUTE DISTRESS. PT VITAL SIGNS STABLE. PRESCRIBED MEDICATION GIVEN AND PT TOLERATED IT WELL. PT GIVEN ATIVAN PRN AT 2153H and 0540hFOR AGITATION AND RESTLESSNESS . PT BANGING ON THE TABLE OF THE GERICHAIR AND YELLING. PT GIVEN PRN TYLENOL AT 2208H. PT TOLERATED IT WELL. PT CONFUSED AND NEEDS REDIRECTION AND REORIENTATION. SAFETY AND COMFORT PROVIDED. ALL NEEDS ARE MET. WILL ENDORSE TO INCOMING NURSE FOR CONTINUITY OF CARE.
[2020-07-02 07:30] VITALS: BP 139/62
[2020-07-02 07:34] LABS: BASOPHILS # (AUTO) 0.1 K/uL (0.0-8.0); BASOPHILS % (AUTO) 0.7 % (0.0-2.0); EOSINOPHILS # (AUTO) 0.1 K/uL (0.0-0.7); HEMOGLOBIN 11.4 g/dL (12.5-16.3); LYMPHOCYTES # (AUTO) 2.1 K/uL (20.0-40.0); LYMPHOCYTES % (AUTO) 19.5 % (20.5-51.5); MEAN CORPUSCULAR HEMOGLOBIN 29.5 uug (23.8-33.4); MEAN CORPUSCULAR HGB CONC 33 g/dL (32.5-36.3); MEAN CORPUSCULAR VOLUME 90.9 fL (73.0-96.2); MONOCYTES # (AUTO) 1.2 K/uL (2.0-10.0); MONOCYTES % (AUTO) 11.7 % (0.0-11.0); NEUTROPHILS # (AUTO) 7.1 K/uL (1.8-8.9); NEUTROPHILS % (AUTO) 67.1 % (38.5-71.5); PLATELET COUNT (AUTO) 173 K/uL (152-348); RED BLOOD CELL COUNT(AUTO) 3.85 MIL/uL (4.06-5.63)
[2020-07-02 07:40] LABS: WHITE BLOOD COUNT (AUTO) 10.6 K/uL (3.6-10.2)
[2020-07-02 08:07] LABS: CREATININE 1.1 mg/dL (0.6-1.3); POTASSIUM 4.1 mmol/L (3.5-5.1)
[2020-07-02] MEDS: LOSARTAN POTASSIUM 50 MG TABLET PO SCH (11:10)
[2020-07-02] MEDS: FUROSEMIDE 20 MG TABLET PO SCH (11:11)
[2020-07-02] MEDS: GABAPENTIN 100 MG CAPSULE PO SCH ×3 (11:11→19:07)
[2020-07-02] MEDS: BENZTROPINE MESYLATE 0.5 MG TABLET PO SCH ×2 (11:11→19:07)
[2020-07-02] MEDS: DOCUSATE SODIUM 100 MG CAPSULE PO SCH ×2 (11:11→18:41)
[2020-07-02] MEDS: LORAZEPAM 0.5 MG TABLET PO SCH ×2 (11:14→13:00)
[2020-07-02] MEDS: HALOPERIDOL 1 MG TABLET PO SCH ×3 (11:14→18:30)
[2020-07-02] MEDS: MEMANTINE HCL 10 MG TABLET PO SCH ×2 (11:14→21:42)
[2020-07-02] MEDS: Z GUARD REMEDY PASTE 57 GM TUBE TOP SCH ×2 (11:15→21:42)
[2020-07-02] MEDS: DIVALPROEX SPRINKLE 125 MG CAP.SPRINK PO SCH ×2 (11:17→13:11)
[2020-07-02] MEDS: ATENOLOL 25 MG TABLET PO SCH (11:18)
[2020-07-02] MEDS: VITAMINS A AND D OINT TP SCH (11:19)
[2020-07-02] MEDS: DILTIAZEM HCL CD 120 MG CAP.SR.24H PO SCH (11:19)
[2020-07-02] MEDS: APIXABAN 5 MG TABLET PO SCH ×2 (11:20→18:42)
[2020-07-02] MEDS ORDERED: diphenhydrAMINE 50 MG/1 ML VIAL IM ONE (12:30)
[2020-07-02] MEDS ORDERED: HALOPERIDOL LACTATE 5 MG/1 ML VIAL IM ONE (12:30)
--- NOTE | 2020-07-02 12:30 | NUR ---
Pt is agitated, yelling, screaming, banging on the table, unable to calm down. pt throwing food accross the room. PRN PO medications not effective. Ambrose Mcclain contacted, order for IM (Haldol 3 and Benadryl 25)mg was obtained, given with assistance of security. Pt tolerated wells.
[2020-07-02] MEDS: ACETAMINOPHEN 325 MG TABLET PO PRN (15:13)
[2020-07-02 16:00] VITALS: BP 95/68
[2020-07-02 17:31] VITALS: BP 104/71
[2020-07-02 19:06] LABS: ABG BASE EXCESS 0.8 mmol/L; ABG HCO3 24.9 mmol/L; ABG PH 7.434 (7.350-7.450); ABG PO2 50.9 mmHg (75.0-100.0); ABG SITE LEFT RADIAL; COHb 0.9 % (0.5-1.5); MetHb 0.1 % (0.0-1.5); O2Hb 86.1 % (94.0-97.0); VENT MODE ROOM AIR
[2020-07-02 20:11] VITALS: BP 132/68
[2020-07-02] MEDS ORDERED: DIVALPROEX SPRINKLE 125 MG CAP.SPRINK PO SCH ×2 (21:00)
[2020-07-02] MEDS: DONEPEZIL 10 MG TABLET PO SCH (21:42)
[2020-07-02] MEDS: HALOPERIDOL 2 MG TABLET PO SCH (21:42)
--- NOTE | 2020-07-02 21:49 | NUR ---
PATIENT IS DISCHARGE TO TELE FLOOR PER [facility] ON [address] BRUSH. PATIENT CONFUSED YELLING SCREAMING, OXYGEN SAT 94% BUT THE PO2 50.9.
--- NOTE | 2020-07-03 08:21 | NUR ---
KATLIN GPS Transfer/DC Plan: Patient is under the care of doctor Ambrose and will remain on 5150. Patient was transferred on 07/02 due to high levels of ABG. Upon discharge patient is from intermediate [facility] [address] [place] [address] ) ). KATLNI spoke with Catrachita Vieyra at facility who confirmed patient is welcome back. Patient is alert and oriented x2 and is aware and agreeable with his discharge plan. Patient denies suicidal or homicidal ideation. Patient will follow up with psychiatrist Dr. Boggs and Floor Scrubber Dr. Cottrell at [facility] ([phone]). Patients daughter, Carolina ([phone]) is aware and agreeable with discharge plan.
== END 2020-07-02 21:50 | DRG 885 ==
LOC: ER 22:55 → GPS 06-21 02:24
PROVIDERS: ADMIT Psychiatry & Neurology Psychiatry; ATTEND Nurse Practitioner Acute Care
DX: F29 Unspecified psychosis not due to a substance or known physiological condition (principal); N17.9 Acute kidney failure, unspecified; N18.9 Chronic kidney disease, unspecified; E87.0 Hyperosmolality and hypernatremia; F02.81 Dementia in other diseases classified elsewhere, unspecified severity, with behavioral disturbance; I82.403 Acute embolism and thrombosis of unspecified deep veins of lower extremity, bilateral; I50.42 Chronic combined systolic (congestive) and diastolic (congestive) heart failure; D68.69 Other thrombophilia; E44.1 Mild protein-calorie malnutrition; I13.0 Hypertensive heart and chronic kidney disease with heart failure and stage 1 through stage 4 chronic kidney disease, or unspecified chronic kidney disease; D64.9 Anemia, unspecified; Z20.822 Contact with and (suspected) exposure to COVID-19; G30.9 Alzheimer's disease, unspecified; E11.40 Type 2 diabetes mellitus with diabetic neuropathy, unspecified; D63.8 Anemia in other chronic diseases classified elsewhere; E78.5 Hyperlipidemia, unspecified; E86.1 Hypovolemia; F25.9 Schizoaffective disorder, unspecified; F32.9 Major depressive disorder, single episode, unspecified; F41.9 Anxiety disorder, unspecified; K21.9 Gastro-esophageal reflux disease without esophagitis; L85.3 Xerosis cutis; M20.41 Other hammer toe(s) (acquired), right foot; M20.42 Other hammer toe(s) (acquired), left foot; R13.11 Dysphagia, oral phase; Z66 Do not resuscitate; Z73.6 Limitation of activities due to disability; E88.09 Other disorders of plasma-protein metabolism, not elsewhere classified; M62.81 Muscle weakness (generalized); R13.10 Dysphagia, unspecified; Z68.26 Body mass index [BMI] 26.0-26.9, adult; F39 Unspecified mood [affective] disorder; Z79.01 Long term (current) use of anticoagulants; E11.22 Type 2 diabetes mellitus with diabetic chronic kidney disease
CPT/HCPCS: 36415; 36600; 71045; 80164; 83735; 84443; 85025; 93005; A4663; C1758; G0480; J1200; J1630; J2060; J2358; J3490

== ENCOUNTER 2020-07-02 22:03 | Inpatient (IN) | payer MEDICARE, OTHER ==
[~2020-07-02] VITALS: Ht 165.1 cm; Wt 74.0 kg
[~2020-07-02 22:03] MED LIST: ACET-2154 PO; AMIN30LI27 PO; APIX5TAB PO; ASCO500C18 PO; ATEN25TA PO; DILT-32 PO; DOCU100C36 PO; FERR325T28 PO; FURO-152 PO; GABA-532 PO; LOSA100T31 PO; MAGN400O6 PO; MULT-213 PO; OMEP20CA15 PO; quercetin PO
[2020-07-02] MEDS ORDERED: Z GUARD REMEDY PASTE 57 GM TUBE TOP PRN (22:30)
[2020-07-02] MEDS ORDERED: LORAZEPAM 1 MG TABLET PO PRN (22:30)
[2020-07-02] MEDS ORDERED: ONDANSETRON 4 MG/2 ML VIAL IV PRN (22:30)
[2020-07-02] MEDS ORDERED: MAGNESIUM HYDROXIDE 30 ML LIQUID UDC PO PRN (22:30)
--- NOTE | 2020-07-02 22:30 | NUR ---
RECEIVED PT FROM MENTAL HEALTH UNIT. PT IN NO ACUTE DISTRESS. PT STILL ON HOLD FOR 5250 UNTIL 07/07/2020. SITTER AT BEDSIDE FOR SAFETY. USP ASSESSMENT DONE. ADMISSION PROCESS AND CARE PLAN INITIATED. BELONGING LIST DONE. SAFETY AND COMFORT PROVIDED. WILL CONTINUE TO MONITOR.
[2020-07-02 22:40] VITALS: BP 134/74
[2020-07-03] VITALS: BP 123/66
[2020-07-03] MEDS: TEMAZEPAM 7.5 MG CAPSULE PO PRN (02:00)
[2020-07-03 04:00] VITALS: BP 138/78
[2020-07-03] MEDS: PANTOPRAZOLE SODIUM 40 MG TABLET.DR PO SCH (06:08)
--- NOTE | 2020-07-03 06:18 | NUR ---
PT SLEPT INTERMITTENTLY. PRESCRIBED MEDICATION GIVEN AND PT TOLERATED IT WELL. IV INTACT. PT GIVEN ATIVAN PRN AT 2355 H FOR RESTLESSNESS AND AGITATION. PT YELLING. AFTER AN HOUR PT CALMER AND SLEPT FOR A BIT. WHEN HE WOKE UP HE STARTED YELLING AGAIN. RESTORIL PRN GIVEN AT 0200H . PT TOLERATED IT WELL. SAFETY AND COMFORT PROVIDED. ALL NEEDS ARE MET. WILL ENDORSE TO INCOMING NURSE FOR CONTINUITY OF CARE.
[2020-07-03 06:49] LABS: BASOPHILS # (AUTO) 0.1 K/uL (0.0-8.0); BASOPHILS % (AUTO) 0.9 % (0.0-2.0); EOSINOPHILS # (AUTO) 0.1 K/uL (0.0-0.7); EOSINOPHILS % (AUTO) 1.8 % (0.0-7.0); HEMATOCRIT 33.3 % (36.7-47.1); HEMOGLOBIN 10.7 g/dL (12.5-16.3); LYMPHOCYTES # (AUTO) 2.1 K/uL (20.0-40.0); LYMPHOCYTES % (AUTO) 25.7 % (20.5-51.5); MEAN CORPUSCULAR HEMOGLOBIN 29.4 uug (23.8-33.4); MEAN CORPUSCULAR HGB CONC 32 g/dL (32.5-36.3); MEAN CORPUSCULAR VOLUME 91.2 fL (73.0-96.2); MONOCYTES % (AUTO) 11.8 % (0.0-11.0); NEUTROPHILS # (AUTO) 4.9 K/uL (1.8-8.9); NEUTROPHILS % (AUTO) 59.8 % (38.5-71.5); PLATELET COUNT (AUTO) 173 K/uL (152-348); RED BLOOD CELL COUNT(AUTO) 3.65 MIL/uL (4.06-5.63); WHITE BLOOD COUNT (AUTO) 8.2 K/uL (3.6-10.2)
[2020-07-03 06:59] LABS: MAGNESIUM 2.3 mg/dL (1.8-2.4)
--- NOTE | 2020-07-03 08:34 | NUR ---
KATLIN GPS Transfer/DC Plan: Patient is under the care of doctor Ambrose and will remain on 5150. Patient was transferred on 07/02 due to high levels of ABG. Upon discharge patient is from shelter [facility] [address] [place] [address] ) ). KATLIN spoke with Catrachita Vieyra at facility who confirmed patient is welcome back. Patient is alert and oriented x2 and is aware and agreeable with his discharge plan. Patient denies suicidal or homicidal ideation. Patient will follow up with psychiatrist Dr. Boggs and Lithopone Charger Dr. Cottrell at [facility] ([phone]). Patients daughter, Carolina ([phone]) is aware and agreeable with discharge plan.
[2020-07-03] MEDS ORDERED: ATENOLOL 25 MG TABLET PO SCH (09:00)
[2020-07-03] MEDS ORDERED: FUROSEMIDE 20 MG TABLET PO SCH (09:00)
[2020-07-03] MEDS ORDERED: FUROSEMIDE 40 MG/4 ML VIAL IV SCH (09:00)
[2020-07-03] MEDS: APIXABAN 5 MG TABLET PO SCH ×2 (09:13→17:07)
[2020-07-03] MEDS: DIVALPROEX SPRINKLE 125 MG CAP.SPRINK PO SCH ×2 (09:14→21:33)
[2020-07-03] MEDS: GABAPENTIN 100 MG CAPSULE PO SCH (09:14)
[2020-07-03] MEDS: DOCUSATE SODIUM 100 MG CAPSULE PO SCH ×2 (09:14→17:06)
[2020-07-03] MEDS: FERROUS SULFATE 325 MG TABEC PO SCH ×2 (09:15→17:06)
[2020-07-03] MEDS: ASCORBIC ACID 500 MG TABLET PO SCH ×2 (09:15→17:06)
[2020-07-03] MEDS: MULTIVITAMINS,THERAPEUTIC TABLET PO SCH (09:16)
[2020-07-03] MEDS: LOSARTAN POTASSIUM 50 MG TABLET PO SCH (09:16)
[2020-07-03] MEDS: DILTIAZEM HCL CD 120 MG CAP.SR.24H PO SCH (09:17)
[2020-07-03] MEDS: HALOPERIDOL 1 MG TABLET PO SCH ×3 (09:23→17:15)
--- NOTE | 2020-07-03 11:20 | NUR ---
Some agitation at this time. Was given a walk, offered toileting, given snack of pudding ( eats more puree and 1:1 feeder). Allowed to watch youtube program in Qatari. Patient is agitated and yelling out. Reyes Neal RN
[2020-07-03] MEDS: LORAZEPAM 0.5 MG TABLET PO PRN (12:14)
--- NOTE | 2020-07-03 14:41 | NUR ---
Patient throwing, hitting at this time. Patient removed own intravenous site on right wrist. Patient has skin tear where he removed it. Cleansed site with saline, placed non adherent foam dressing and tape. Wrapped with coban. Patient in seated position Reyes Neal RN
[2020-07-03] MEDS ORDERED: diphenhydrAMINE 50 MG/1 ML VIAL IM ONE (15:00)
[2020-07-03] MEDS ORDERED: HALOPERIDOL LACTATE 5 MG/1 ML VIAL IM ONE (15:00)
--- NOTE | 2020-07-03 15:09 | NUR ---
Patient yelling at staff. Assessed for pain. Offered food, water, toileting, diaper change. Patient continues yelling at staff attempting to hit, pinch, or throw items. Reyes Neal RN
[2020-07-03 16:00] VITALS: BP 106/45
--- NOTE | 2020-07-03 17:29 | NUR ---
Patient is calmly starting his dinner. Does not like water. Coughing with water noted at 90 degree seated position. Reyes Neal RN
--- NOTE | 2020-07-03 17:39 | NUR ---
Patient discharge to home with ambulance crew after refusal of first ambulance crew due to preference of the appearance of strength. She said she had too many stairs for the first crew to lift her to the top (she thought four, her caregiver and ambulance crew corrected her that there are two steps.) She verbalizes understanding of teaching. Given a copy of discharge instruction, medication reconciliation and follow up care. All belongings sent home with patient. Reyes Neal RN Addendum: 07/03/20 at 4127 by [facility] IN[facility] RN1 RN Discard above note, wrong patient
--- NOTE | 2020-07-03 18:30 | NUR ---
Pitting edema 1+ bilaterally. Ambulating hallway with assist. Reyes Neal RN
--- NOTE | 2020-07-03 19:30 | NUR ---
RECEIVED PT AWAKE, ALERT AND ORIENTEDX2. PT IN NO ACUTE DISTRESS. PT ON ROOM AIR . SAFETY AND COMFORT PROVIDED. 1l:1 SITTER FOR SAFETY. WILL CONTINUE TO MONITOR.
[2020-07-03 20:00] VITALS: BP 113/56
[2020-07-03] MEDS ORDERED: HALOPERIDOL 2 MG TABLET PO SCH (21:00)
[2020-07-03] MEDS: ACETAMINOPHEN 325 MG TABLET PO PRN (21:33)
--- NOTE | 2020-07-03 22:00 | NUR ---
TRIED PUTTING IV TO THE PT. PT ANXIOUS AND REFUSING. WILL CONTINUE TO MONITOR.
--- NOTE | 2020-07-03 23:30 | NUR ---
PT OBSERVED SCREAMING, YELLING AND TRYING TO HIT STAFF. SAFETY PROVIDED. WILL CONTINUE TO MONITOR.
--- NOTE | 2020-07-04 00:45 | NUR ---
Patient in bed, awake, confused and restless. Sitter 1:1 at bedside. Safety measures and fall prevention maintained. Continue to monitor.
[2020-07-04] MEDS: TEMAZEPAM 7.5 MG CAPSULE PO PRN (00:53)
--- NOTE | 2020-07-04 00:53 | NUR ---
RESTORIL PRN GIVEN FOR PT AT 0053H. SAFETY AND COMFORT PROVIDED. WILL CONTINUE TO MONITOR.
[2020-07-04] MEDS: LORAZEPAM 0.5 MG TABLET PO PRN (02:38)
[2020-07-04] MEDS ORDERED: HALOPERIDOL LACTATE 5 MG/1 ML VIAL IM ONE (03:00)
[2020-07-04] MEDS ORDERED: diphenhydrAMINE 50 MG/1 ML VIAL IM ONE (03:00)
--- NOTE | 2020-07-04 03:30 | NUR ---
EXTREME AGITATION NOTED FOR THE PT. PT TRYING TO HIT AND SPITTING STAFF, YELLING,SCREAMING AND BANGING THE TABLE. CALLED DR. DAT BRUSH TO REPORT ABOUT THE BEHAVIOUR OF THE PT IN SPITE OF GIVING ATIVAN AT 0238H WHICH DIDN'T WORKED FOR THE PT. DR. BRUSH ORDERED HALDOL 3MG IM ONE AND BENADRYL 25 MG IM ONE AT 0258H. AFTER THE SHOT GIVEN TO THE PT. PT VITAL SIGNS STABLE. PT IN NO ACUTE DISTRESS. 1:1 SITTER AT BEDSIDE OF THE PT. WILL CONTINUE TO MONITOR.
[2020-07-04 03:45] VITALS: BP 142/68
[2020-07-04 05:28] VITALS: BP 125/55
[2020-07-04] MEDS: PANTOPRAZOLE SODIUM 40 MG TABLET.DR PO SCH (06:00)
--- NOTE | 2020-07-04 06:22 | NUR ---
PT SLEPT 6 H . PRESCRIBED MEDICATION GIVEN AND PT TOLERATED IT WELL. SAFETY AND COMFORT PROVIDED. IM SHOT HALDOL AND BENADRYL GIVEN ONE TIME FOR THE PT. VITAL SIGNS STABLE. PT IN NO ACUTE DISTRESS. SITTER FOR SAFETY. PT AROUSABALE. IV PLACED ON LEFT FORARM 22G INTACT AND PATENT. ALL NEEDS ARE MET. WILL ENDORSE TO INCOMING NURSE FOR CONTINUITY OF CARE.
[2020-07-04 06:31] LABS: BASOPHILS # (AUTO) 0.1 K/uL (0.0-8.0); BASOPHILS % (AUTO) 1.1 % (0.0-2.0); EOSINOPHILS # (AUTO) 0.1 K/uL (0.0-0.7); EOSINOPHILS % (AUTO) 1.6 % (0.0-7.0); HEMATOCRIT 33.9 % (36.7-47.1); LYMPHOCYTES # (AUTO) 2.5 K/uL (20.0-40.0); LYMPHOCYTES % (AUTO) 31.3 % (20.5-51.5); MEAN CORPUSCULAR HEMOGLOBIN 29.5 uug (23.8-33.4); MEAN CORPUSCULAR HGB CONC 33 g/dL (32.5-36.3); MEAN CORPUSCULAR VOLUME 90.8 fL (73.0-96.2); MONOCYTES # (AUTO) 1.1 K/uL (2.0-10.0); MONOCYTES % (AUTO) 13.1 % (0.0-11.0); NEUTROPHILS # (AUTO) 4.3 K/uL (1.8-8.9); NEUTROPHILS % (AUTO) 52.9 % (38.5-71.5); PLATELET COUNT (AUTO) 169 K/uL (152-348); RED BLOOD CELL COUNT(AUTO) 3.73 MIL/uL (4.06-5.63)
[2020-07-04 06:40] LABS: CREATININE 1.3 mg/dL (0.6-1.3); MAGNESIUM 2.4 mg/dL (1.8-2.4); POTASSIUM 4.2 mmol/L (3.5-5.1)
[2020-07-04 07:54] VITALS: BP 117/58
[2020-07-04] MEDS: LOSARTAN POTASSIUM 50 MG TABLET PO SCH (08:22)
[2020-07-04] MEDS: APIXABAN 5 MG TABLET PO SCH ×2 (08:23→17:51)
[2020-07-04] MEDS: MULTIVITAMINS,THERAPEUTIC TABLET PO SCH (08:23)
[2020-07-04] MEDS: DIVALPROEX SPRINKLE 125 MG CAP.SPRINK PO SCH ×3 (08:23→17:51)
[2020-07-04] MEDS: FERROUS SULFATE 325 MG TABEC PO SCH ×2 (08:23→17:50)
[2020-07-04] MEDS: ASCORBIC ACID 500 MG TABLET PO SCH ×2 (08:24→17:51)
[2020-07-04] MEDS: GABAPENTIN 100 MG CAPSULE PO SCH (08:24)
[2020-07-04] MEDS: DOCUSATE SODIUM 100 MG CAPSULE PO SCH ×2 (08:24→17:50)
[2020-07-04] MEDS: DILTIAZEM HCL CD 120 MG CAP.SR.24H PO SCH (08:24)
[2020-07-04] MEDS ORDERED: HALOPERIDOL 2 MG TABLET PO SCH ×2 (09:00→21:00)
[2020-07-04] MEDS ORDERED: HALOPERIDOL 1 MG TABLET PO SCH (09:00)
--- NOTE | 2020-07-04 09:20 | NUR ---
Pt. restless agitated and now walking and screaming down the hallway and as reported punch carmen x2. Attending called to be notified and orders received.
[2020-07-04] MEDS: LORAZEPAM 2 MG/1 ML VIAL IM PRN ×2 (09:26→22:39)
--- NOTE | 2020-07-04 09:36 | NUR ---
with the Help of radio installer Marquita charlton escorted back to his room and still attempting to punch staff. Patient reoriented, and medicated. Left with 1:1 sitter at bedside.
[2020-07-04 12:00] VITALS: BP 120/50
[2020-07-04] MEDS: LORAZEPAM 0.5 MG TABLET PO SCH ×2 (12:00→18:00)
[2020-07-04] MEDS: HALOPERIDOL 2 MG TABLET PO SCH ×2 (13:19→17:50)
--- NOTE | 2020-07-04 13:27 | NUR ---
11:30am: Camera Mechanic requested to located family contact information. SW was able to obtain contact information on patient's daughter, Carolina, . KATLIN provided this information to charge nurse Daniel.
[2020-07-04 16:04] VITALS: BP 102/50
--- NOTE | 2020-07-04 19:45 | NUR ---
Patient in bed, awake, confused and restless. Sitter 1:1 at bedside. Safety measures and fall prevention maintained. Continue to monitor.
[2020-07-04 20:17] VITALS: BP 122/53
--- NOTE | 2020-07-04 22:40 | NUR ---
Patient very restless, agitated, uncooperative, act to hit/punch. trying to get out of bed, Placed in Zabrina chair for safety. Ativan Im given as needed and ordered due to increased agitation. Will monitor.
[2020-07-05] MEDS: LORAZEPAM 0.5 MG TABLET PO SCH ×4 (01:56→12:49)
[2020-07-05] MEDS: TEMAZEPAM 7.5 MG CAPSULE PO PRN (02:35)
[2020-07-05] MEDS: ACETAMINOPHEN 325 MG TABLET PO PRN (02:35)
[2020-07-05 04:28] VITALS: BP 112/45
--- NOTE | 2020-07-05 06:04 | NUR ---
Shift End Report: Up in Zabrina chair all night for safety. Routine Ativan and Haldol oral with minimal effect. On and off restlessness, agitation and combativeness noted. Sitter at bedside all the time. No fall/injury. Hydration adequate. All needs attended and met. No significant event reported all night. Continue care as planned.
[2020-07-05] MEDS: PANTOPRAZOLE SODIUM 40 MG TABLET.DR PO SCH (06:13)
[2020-07-05 07:13] LABS: BASOPHILS # (AUTO) 0.1 K/uL (0.0-8.0); BASOPHILS % (AUTO) 0.9 % (0.0-2.0); EOSINOPHILS # (AUTO) 0.1 K/uL (0.0-0.7); EOSINOPHILS % (AUTO) 1.8 % (0.0-7.0); HEMATOCRIT 33.9 % (36.7-47.1); HEMOGLOBIN 11.3 g/dL (12.5-16.3); LYMPHOCYTES # (AUTO) 2.2 K/uL (20.0-40.0); LYMPHOCYTES % (AUTO) 29.8 % (20.5-51.5); MEAN CORPUSCULAR HGB CONC 33 g/dL (32.5-36.3); MEAN CORPUSCULAR VOLUME 90.1 fL (73.0-96.2); NEUTROPHILS % (AUTO) 54.5 % (38.5-71.5); PLATELET COUNT (AUTO) 174 K/uL (152-348); RED BLOOD CELL COUNT(AUTO) 3.76 MIL/uL (4.06-5.63); WHITE BLOOD COUNT (AUTO) 7.4 K/uL (3.6-10.2)
[2020-07-05 07:20] LABS: BILIRUBIN,TOTAL 0.5 mg/dL (0.2-1.0); CREATININE 1.3 mg/dL (0.6-1.3); MAGNESIUM 2.4 mg/dL (1.8-2.4); PHOSPHOROUS 4.2 mg/dL (2.5-4.9); POTASSIUM 3.9 mmol/L (3.5-5.1); TOTAL PROTEIN, SERUM 8.2 g/dL (6.4-8.2)
[2020-07-05 07:23] VITALS: BP 117/71
--- NOTE | 2020-07-05 07:30 | NUR ---
Patient report received from gardening instructor. Patient is in bed resting. He is alert and oriented x 1 to person. Patient is confused and has a 1 to 1 sitter. Skin is intact. Patient is comfortable at room air. He is able to walk with assistance. Occasional incontinence but able to use a urinal or walk to the restroom. Patient has bilateral edema on both lower extremities. IV is on the left forearm 22g. Bed is in low and locked position. Fall and safety precautions in place.
[2020-07-05] MEDS: GABAPENTIN 100 MG CAPSULE PO SCH (08:39)
[2020-07-05] MEDS: DOCUSATE SODIUM 100 MG CAPSULE PO SCH (08:39)
[2020-07-05] MEDS: ASCORBIC ACID 500 MG TABLET PO SCH (08:40)
[2020-07-05] MEDS: APIXABAN 5 MG TABLET PO SCH (08:40)
[2020-07-05] MEDS: DILTIAZEM HCL CD 120 MG CAP.SR.24H PO SCH (08:41)
[2020-07-05] MEDS: LOSARTAN POTASSIUM 50 MG TABLET PO SCH (08:41)
[2020-07-05] MEDS: FERROUS SULFATE 325 MG TABEC PO SCH (08:41)
[2020-07-05] MEDS: DIVALPROEX SPRINKLE 125 MG CAP.SPRINK PO SCH ×2 (08:41→14:14)
[2020-07-05] MEDS: MULTIVITAMINS,THERAPEUTIC TABLET PO SCH (08:41)
[2020-07-05] MEDS: HALOPERIDOL 2 MG TABLET PO SCH ×2 (08:42→14:14)
[2020-07-05] MEDS ORDERED: FUROSEMIDE 20 MG TABLET PO SCH (09:00)
[2020-07-05 11:31] VITALS: BP 124/55
--- NOTE | 2020-07-05 12:28 | NUR ---
SPOKED WITH DR BRUSH AND SAID OKAY TO DISCONTINUE 5250 AND CONTINUE ALL PSYCH MEDS, CLEARED TO GO TO [facility]
[2020-07-05 15:21] VITALS: BP 117/50
--- NOTE | 2020-07-05 16:30 | NUR ---
Patient anxious and combative with sitter. When assisted to restroom, patient continues to push sitter and attempting to change him. Able to calm patient with reorientation.
--- NOTE | 2020-07-05 17:30 | NUR ---
Patient discharged to [facility] for continuity of care. All paperwork completed and signed by 2 RNs as patient is unable to sign. Medication given as ordered. IV and ID band removed. Report given to GERARDO Jarrett at [facility]. Patient is stable. Picked up by ambulance. Belonging sent with ambulance.
== END 2020-07-05 17:30 | DRG 291 ==
LOC: TELE3 22:03 → MEDSURG3 07-03 10:00
PROVIDERS: ADMIT Nurse Practitioner Family; ATTEND Hospitalist
DX: I13.0 Hypertensive heart and chronic kidney disease with heart failure and stage 1 through stage 4 chronic kidney disease, or unspecified chronic kidney disease (principal); I50.33 Acute on chronic diastolic (congestive) heart failure; N17.0 Acute kidney failure with tubular necrosis; F01.51 Vascular dementia, unspecified severity, with behavioral disturbance; D68.69 Other thrombophilia; F02.81 Dementia in other diseases classified elsewhere, unspecified severity, with behavioral disturbance; F25.9 Schizoaffective disorder, unspecified; G40.909 Epilepsy, unspecified, not intractable, without status epilepticus; Z79.01 Long term (current) use of anticoagulants; D63.8 Anemia in other chronic diseases classified elsewhere; D69.6 Thrombocytopenia, unspecified; E78.5 Hyperlipidemia, unspecified; E86.0 Dehydration; F32.9 Major depressive disorder, single episode, unspecified; F29 Unspecified psychosis not due to a substance or known physiological condition; R13.10 Dysphagia, unspecified; M62.81 Muscle weakness (generalized); F41.9 Anxiety disorder, unspecified; Z86.718 Personal history of other venous thrombosis and embolism; R13.11 Dysphagia, oral phase; G30.9 Alzheimer's disease, unspecified; I87.2 Venous insufficiency (chronic) (peripheral); Z73.6 Limitation of activities due to disability; E11.40 Type 2 diabetes mellitus with diabetic neuropathy, unspecified; F39 Unspecified mood [affective] disorder; N18.9 Chronic kidney disease, unspecified; K21.9 Gastro-esophageal reflux disease without esophagitis
CPT/HCPCS: 36415; 71045; 83735; 84100; 85025; G0378; J1200; J1630; J1940; J2060